=== PATIENT | male | born 1970 | race Caucasian/White ===

== ENCOUNTER 2016-08-17 08:42 | Emergency (ER) | payer SELFPAY ==
[~2016-08-17 08:42] MED LIST: ANTIDEPRESSANT; AURALGAN EAR DR14 ML OT; BLOOD PRESSURE PILL; MONDOXYNE NL100 MG PO; NEXIUM PO; NO MEDICATIONS; PEPCID PO; TESSALON200 MG PO; VOLTAREN75 MG PO; [UNRECOGNIZED DRUG - OTHER] PO
== END 2016-08-17 09:05 | disposition home or self-care (01) ==
LOC: SED 08:42
DX: J06.9 Acute upper respiratory infection, unspecified (principal); F32.9 Major depressive disorder, single episode, unspecified
CPT/HCPCS: 99282

== ENCOUNTER 2017-02-23 09:54 | Emergency (ER) | payer SELFPAY | END 2017-02-23 11:13 | disposition home or self-care (01) | LOC: SED 09:54 | DX: S46.811A Strain of other muscles, fascia and tendons at shoulder and upper arm level, right arm, initial encounter (principal); F32.9 Major depressive disorder, single episode, unspecified; F17.200 Nicotine dependence, unspecified, uncomplicated; X50.0XXA Overexertion from strenuous movement or load, initial encounter; Y92.69 Other specified industrial and construction area as the place of occurrence of the external cause | CPT/HCPCS: 99283 ==